=== PATIENT | female | born 1955 | race Caucasian/White ===

== ENCOUNTER 2020-06-01 13:41 | Emergency (ER) | payer MEDICARE, BC ==
[~2020-06-01] VITALS: Ht 157.5 cm; Wt 115.4 kg
[~2020-06-01 13:41] MED LIST: ALLERGY NA50 MCG/ACT NAB; AMITRIPTYLIN10 MG PO; ASPIRIN81 MG PO; CANNABIS TINCTURE; DIOVAN HC2 PO; FENTANYL50 MCG/HR TD; FISH OIL DOUB1200 MG PO; GABAPENTIN600 MG PO; HYDROXYCHLOR200 M1 PO; HYSINGLA ER60 MG PO; LEVOTHYROXIN75 MC1 PO; LIPITOR40 MG PO; LOSARTAN POTAS100 MG PO; LYRICA225 MG PO; METO50TA52 PO; MONTELUKAST SOD10 MG PO; OXYCODONE10 M1 PO; PRAMIPEXOLE0.25 MG PO; RANITIDINE300 MG PO; TIZANIDINE HCL4 MG PO; VENLAFAXINE150 M1 PO; ZOLPIDEM10 MG PO
[2020-06-01 14:22] LABS: HEMATOCRIT 41.1 % (37.0-47.0); HEMOGLOBIN 13.6 g/dl (12.0-16.0); IMMATURE GRANULOCYTES 0.6 % (0.0-5.0); MEAN CELL VOLUME 89.9 fL CALC (80.0-100.0); MEAN CORPUSCULAR HGB 29.8 pG CALC (26.0-32.0); MEAN CORPUSCULAR HGB CONC 33.1 g/dL CAL (32.0-36.0); NEUT# 4.17 thou/uL (2.00-7.15); RED BLOOD COUNT 4.57 mill/uL (4.20-5.60); RED CELL DISTRI WIDTH 12.7 % (11.5-15.5)
[2020-06-01 14:30] VITALS: BP 149/83
[2020-06-01 14:34] LABS: ALBUMIN 4.4 g/dL (3.2-5.0); ALKALINE PHOSPHATASE 62 u/l (38-126); AMYLASE 79 u/l (30-110); ANION GAP 10 (6-22 (CALC)); BILIRUBIN, TOTAL 0.4 mg/dL (0.0-1.4); BUN 18 mg/dL (8-23); BUN/CREATININE RATIO 18 (12-20 (CALC)); CARBON DIOXIDE 34 mmol/l (22-30); CHLORIDE 101 mmol/l (95-108); GFR 56 ML/MIN (>=60 (CALC)); GFR FOR AFR.AMER. > 60 ML/MIN (>=60 (CALC)); LIPASE 71 u/l (23-300); POTASSIUM 4.1 mmol/l (3.5-5.1); SGOT/AST 39 u/l (9-36); SODIUM 141 mmol/l (137-146)
[2020-06-01 14:35] LABS: ACT PARTIAL THROMBO TIME 19.9 SECONDS (20.0-32.5); PROTHROMBIN TIME 9.8 SECONDS (9.0-12.5)
[2020-06-01] MEDS ORDERED: CALCIUM 500/VITAMIN PO (16:14)
[2020-06-01] MEDS ORDERED: LORTAB 1010 MG PO (16:15)
[2020-06-01] MEDS ORDERED: POLY GLYCOL3350 MG PO (16:16)
== END 2020-06-01 14:51 | disposition short-term general hospital (02) ==
LOC: ED 13:41
DX: S06.6X1A Traumatic subarachnoid hemorrhage with loss of consciousness of 30 minutes or less, initial encounter (principal); S00.03XA Contusion of scalp, initial encounter; S00.01XA Abrasion of scalp, initial encounter; I10 Essential (primary) hypertension; F41.9 Anxiety disorder, unspecified; V86.69XA Passenger of other special all-terrain or other off-road motor vehicle injured in nontraffic accident, initial encounter; Y92.410 Unspecified street and highway as the place of occurrence of the external cause

== ENCOUNTER 2021-06-26 12:12 | Observation (INO) | payer MEDICARE, OTHER ==
[~2021-06-26] VITALS: Ht 157.5 cm; Wt 111.0 kg
[~2021-06-26 12:12] MED LIST changes: +CALCIUM 600+D31 TA1 PO; +LORTAB 1010 MG PO; +POLY GLYCOL3350 MG PO
--- NOTE | 2021-06-26 12:12 | NUR ---
PT AMB TO ROOM WITH STEADY GAIT
[2021-06-26 12:43] LABS: HEMATOCRIT 40.4 % (37.0-47.0); HEMOGLOBIN 13.1 g/dl (12.0-16.0); IMMATURE GRANULOCYTES 0.3 % (0.0-5.0); MEAN CELL VOLUME 88.6 fL CALC (80.0-100.0); MEAN CORPUSCULAR HGB 28.7 pG CALC (26.0-32.0); MEAN CORPUSCULAR HGB CONC 32.4 g/dL CAL (32.0-36.0); NEUT# 9.96 thou/uL (2.00-7.15); RED BLOOD COUNT 4.56 mill/uL (4.20-5.60); RED CELL DISTRI WIDTH 12.7 % (11.5-15.5)
--- NOTE | 2021-06-26 13:00 | NUR ---
PT MEDICATED PER MAR; DENIES ANY NEEDS AT THIS TIME
[2021-06-26 13:04] LABS: ALBUMIN 3.9 g/dL (3.2-5.0); BILIRUBIN, TOTAL 1.1 mg/dL (0.0-1.4); CREATININE 1.4 mg/dL (0.5-1.0); POTASSIUM 3.9 mmol/l (3.5-5.1); TOTAL PROTEIN 7.5 g/dL (6.3-8.2)
--- NOTE | 2021-06-26 14:00 | NUR ---
PT RESTING ON STRETCHER; ABX INFUSING; DENIES ANY NEEDS AT THIS TIME
--- NOTE | 2021-06-26 15:00 | NUR ---
PT RETURNED FROM RADIOLOGY; MONITORING DEVICES REAPPLIED
--- NOTE | 2021-06-26 15:05 | NUR ---
PT IS A 65 Y/O FEMALE WHO PRESENTS WITH CELLULITIS. ALL MEDS IN PTS CHART REVIEWED. VANCOMYCIN ORDERED FOR PHARMACY TO DOSE. TEMP 97.4 F, WBC 14 THOUS/UL, SCR = 1.4 MG/DL, CRCL 45.5 ML/MIN BLOOD CX PENDING PT IS ALSO ON ROCPEHIN 16 IV Q24H. START VANCOMYCIN 1G IV Q24H. TROUGH IS TO BE DRAWN 30 MIN PRIOR TO 4TH DOSE ON 06/29 @ 1330. GOAL TROUGH IS 10-15 MCG/ML. PHARMACY WILL CONTINUE TO FOLLOW AND ADVISE NEEDED.
--- NOTE | 2021-06-26 16:00 | NUR ---
URI AT BEDSIDE TO PROVIDE PT HOME MED REC; ADVISED OF CONTINUED WAIT TIME FOR ROOM ASSIGNMENT FOR ADMISSION
[2021-06-26] MEDS ORDERED: BELBUCA300 MCG PO (16:30)
[2021-06-26] MEDS ORDERED: GABAPENTIN600 MG PO ×2 (16:32→16:33)
[2021-06-26] MEDS ORDERED: MYCOPHENOLAT250 MG PO (16:40)
--- NOTE | 2021-06-26 17:00 | NUR ---
PT VOMITTED X 1; MEDICATED PER MAR
--- NOTE | 2021-06-26 18:13 | NUR ---
REPORT REC FROM Yana ONONAN RN
--- NOTE | 2021-06-26 18:15 | NUR ---
REPORT CALLED TO JOVAN JACOME
--- NOTE | 2021-06-26 18:31 | NUR ---
Admission Note Report Given to: JOVAN JACOME Transported by: X Wheelchair Stretcher Transported with: X Nurse Transporter X Patent IV O2 Balance Truer Location: ICU X [facility]
--- NOTE | 2021-06-26 19:45 | NUR ---
PT RESTING IN BED ON HER TABLET, NO SIGNS OF DISTRESS NOTED, RESP EVEN AND UNLABORED. PT ALERT AND ORIENTED X3, PT HERE FOR CELLULITIS TO R SHOULDER, PHOTO OBTAINED, SKIN INTACT. DISCUSSED POC, ADMISSION ASSESSMENT COMPLETED, CALL LIGHT IN REACH,CONTINUE TO MONITOR.
[2021-06-26 19:48] VITALS: BP 134/62
--- NOTE | 2021-06-27 | NUR ---
PT RESTING IN BED WITH EYES CLOSED, NO SIGNS OF DISTRESS NOTED, RESP EVEN AND UNLABORED. CALL LIGHT IN REACH, CONTINUE TO MONITOR.
--- NOTE | 2021-06-27 04:15 | NUR ---
GAS DISPENSER AT BEDSIDE FOR AM LABS, PT VOICES NO NEEDS OR COMPLAINTS AT THIS TIME, NEW BAG OF IV FLUIDS INITIATED, NO SIGNS OF DISTRESS NOTED, RESP EVEN AND UNLABORED. CALL LIGHT IN REACH,CONTINUE TO MONITOR.
[2021-06-27 04:25] VITALS: BP 112/51
[2021-06-27 06:11] LABS: HEMATOCRIT 34.8 % (37.0-47.0); HEMOGLOBIN 11.4 g/dl (12.0-16.0); MEAN CELL VOLUME 87.9 fL CALC (80.0-100.0); MEAN CORPUSCULAR HGB 28.8 pG CALC (26.0-32.0); MEAN CORPUSCULAR HGB CONC 32.8 g/dL CAL (32.0-36.0); RED BLOOD COUNT 3.96 mill/uL (4.20-5.60); RED CELL DISTRI WIDTH 12.7 % (11.5-15.5)
[2021-06-27 06:36] LABS: CREATININE 1.2 mg/dL (0.5-1.0); MAGNESIUM 1.7 mg/dL (1.6-2.3); POTASSIUM 4.1 mmol/l (3.5-5.1)
--- NOTE | 2021-06-27 07:00 | NUR ---
RECIEVE REPORT FROM JOVAN MENDOZA
[2021-06-27 08:17] VITALS: BP 132/78
--- NOTE | 2021-06-27 08:17 | NUR ---
PT RESTING IN SEMI FOWLERS POSITION. PT IS A/O X3. ASSESSMENT AND VITALS COMPLETED. RESPIRATIONS ARE EVEN AND UNLABORED WITH NO DISTRESS NOTED ON ROOM AIR. LUNG SOUNDS ARE CLEAR. HEART RHYTHM NORMAL. BOWEL SOUNDS ARE ACTIVE.PT REPORT BM THIS MORNING. #20G RAC INFUSING IWTH IVF PER ORDER, SITE REMAINS HELTHY AND PATENT. CELLULITIS NOTED TO RIGHT UPPER BACK, SITE RED/TENDER/EDEMADOUS. PT TO BE MEDICATED WITH TYLENOL ONCE IN PIXIS OF 2/10 BACK PAIN.PT DENIES OF ANY ADDITIONAL NEEDS AT THIS TIME. ALL SAFETY PRECAUTIONS ARE IN PLACE WITH CALL LIGHT IN REACH. WILL CONTINUE TO MONITOR
--- NOTE | 2021-06-27 11:07 | NUR ---
DR ROLON AND LG,ANKAYODE AT BEDSIDE
[2021-06-27] MEDS ORDERED: BELBUCA300 MCG TOP (11:16)
[2021-06-27] MEDS ORDERED: TIZANIDINE HYDRO2 MG PO (11:21)
--- NOTE | 2021-06-27 12:00 | NUR ---
PT UP WALKING ROUND ROOM WITH AT BEDSIDE. RESPIRATIONS ARE EVEN AND UNLABORED ON ROOM AIR. #20G RAC INFUSING WITH IVF PER ORDER, SITE REMAINS HEALTHY AND PATENT. TYLENOL ADMINISTERED. PT DENIES OF ANY ADDITONAL PAINS OR DISCOMFORTS AT THIS TIME. ALL SAFETY PRECAUTIONS ARE IN PLACE WITH CALL LIGHT IN REACH. WILL CONTINUE TO MONITOR
[2021-06-27] MEDS ORDERED: DOXYCYCLINE100 MG PO (13:52)
--- NOTE | 2021-06-27 15:07 | NUR ---
LG,ANRP AT BEDSIDE TO ASSESS BACK DUE TO WORRIES OF SITE EBING WORSE. DC ON HOLD AT THIS TIME.
--- NOTE | 2021-06-27 15:55 | NUR ---
DR LEIVA AT BEDSIDE DISCUSSING POC.
--- NOTE | 2021-06-27 16:14 | NUR ---
CONSENT OBATINED FOR I&D OF RIGHT BACK. I&D PERFORMED AT BEDSIDE BY DR LEIVA. PT TOLERATED WELL.
--- NOTE | 2021-06-27 16:40 | NUR ---
PT EDUCATED ON DC INSTRUCTIONS AND NEW MEDICATIONS. PT VERBLAIZED UNDERSTANDING. IV REMOVED WITH CATH INTACT. DRESSING TO RIGHT BACK REMAINS CDI
--- NOTE | 2021-06-27 17:01 | NUR ---
Discharge instructions given. Patient verbalizes understanding of same. Discharged in stable condition via Wheelchair to Home with staff. All belongings sent with pt. PT DC HOME VIA AMBULATING, PT REFUSED WHEELCHAIR. DRESSING TO BACK REMAINS CDI. PT TO F/U WITH DR LEIVA TOMORROW AT NOON. ALL DC INSTRUCTIONS AND PERSONAL BELONGINGS WITH PT
== END 2021-06-27 17:46 | disposition home or self-care (01) ==
LOC: ED 12:12 → ED-I 14:35 → ED 14:35 → ED-I 14:49 → ED 14:49 → MS2 14:50 → ED 14:50 → MS2 06-27 17:46 → ED 06-27 18:32
PROVIDERS: Family Medicine; ADMIT Hospitalist; ATTEND Hospitalist
PROC: 0J970ZZ Drainage of Back Subcutaneous Tissue and Fascia, Open Approach (ICD-10-PCS; principal; 2021-06-27)
PROC: 3E02340 Introduction of Influenza Vaccine into Muscle, Percutaneous Approach (ICD-10-PCS; 2021-06-27)
DX: L02.212 Cutaneous abscess of back [any part, except buttock and flank] (principal); L03.312 Cellulitis of back [any part except buttock and flank]; N17.9 Acute kidney failure, unspecified; I10 Essential (primary) hypertension; M32.9 Systemic lupus erythematosus, unspecified; M79.7 Fibromyalgia; R53.82 Chronic fatigue, unspecified; F41.9 Anxiety disorder, unspecified; Z23 Encounter for immunization; Z20.822 Contact with and (suspected) exposure to COVID-19
CPT/HCPCS: Q9967